=== PATIENT | male | born 1965 | race Caucasian/White ===

== ENCOUNTER 2024-08-16 11:52 | Day surgery (SDC) | payer BC ==
[2024-08-16] MEDS: Tetracaine HCl/PF 0.5% 4 ML Bottle EYEBOTH SCH (07:33)
[2024-08-16] MEDS: Lidocaine 1% PF 2 ML SDV INJECT SCH (07:33)
[2024-08-16] MEDS: Pilocarpine 4% Ophth Soln 15 ML Bot EYERT SCH (07:33)
[2024-08-16] MEDS: Phenylephrine 2.5% Ophth Soln 2 ML Bot EYERT SCH (07:33)
[2024-08-16] MEDS: Cefuroxime 10 MG/ML SYRINGE EYERT SCH (07:33)
[2024-08-16] MEDS: Polymyxin B/Trimethoprim 10 ML Bottle EYERT SCH (07:34)
[2024-08-16] MEDS: Brimonidine 0.2% Ophth Soln 5 ML Bottle EYERT SCH (12:22)
[2024-08-16] MEDS: Tropicamide 1% Ophth Soln 3 ML Bottle EYERT SCH (12:32)
== END 2024-08-16 14:09 ==
LOC: JD.SDS 11:52
PROVIDERS: ATTEND Ophthalmology
DX: H25.813 Combined forms of age-related cataract, bilateral (principal); I10 Essential (primary) hypertension; E78.2 Mixed hyperlipidemia; Z79.899 Other long term (current) drug therapy
CPT/HCPCS: 66984; A9270; J0697; J2003; J3490